=== PATIENT | male | born 1950 | race Caucasian/White ===

== ENCOUNTER 2016-12-17 18:08 | Observation (INO) ==
[2016-12-17 19:15] LABS: Basophils % 0.6 %; Eosinophils # 0.2 K/mcL (0.0-0.6); Eosinophils % 2.5 %; Hematocrit 46.9 % (37.5-50.1); Hemoglobin 15.2 g/dL (12.9-16.9); Immature Granulocytes % 0.3 % (0-4); Lymphocytes # 1.5 K/mcL (0.6-4.6); Lymphocytes % 21.1 %; Mean Corpuscular HGB Conc 32.4 g/dL (31.6-35.5); Mean Corpuscular Hemoglobin 28.8 pg (28.0-33.3); Mean Platelet Volume 10.5 fL (9.4-12.4); Monocytes # 0.5 K/mcL (0.0-1.3); Neutrophils # 4.9 K/mcL (1.6-8.9); Platelet Count 188 K/mcL (140-400); Red Blood Count 5.27 M/mcL (4.19-5.50); Red Cell Distribution Width 12.2 % (11.5-14.5); Segmented Neutrophils % 68.5 %
[2016-12-17] MEDS ORDERED: Ondansetron 4 MG/2 ML VIAL IVP PRN ×2 (19:19→23:32)
[2016-12-17] MEDS ORDERED: diazePAM 10 MG/2 ML SYRINGE IVP STA (19:19)
[2016-12-17 19:25] LABS: Bilirubin,Urine Negative (Negative); Blood,Urine Negative (Negative); Clarity,Urine Clear (Clear); Color,Urine Yellow (Yellow); Glucose,Urine (UA) Normal (Normal); Ketones,Urine Negative (Negative); Leukocyte Esterase,Urine Small (Negative); Nitrite,Urine Negative (Negative); PH,Urine 5.5 pH Units (5.0-8.0); Protein,Urine Negative (Neg-Trace); Specific Gravity,Urine 1.022 (1.010-1.025); Urobilinogen,Urine Normal (Normal)
[2016-12-17 19:28] LABS: Alanine Aminotransferase 17 Units/L (0-55); Albumin 3.8 g/dL (3.5-5.0); Alkaline Phosphatase 90 Units/L (38-126); Aspartate Amino Transferase 17 Units/L (5-34); BUN/Creatinine Ratio 14 (6-26); Bilirubin,Direct 0.3 mg/dL (0.0-0.5); Bilirubin,Indirect 0.4 mg/dL (0.0-1.2); Bilirubin,Total 0.7 mg/dL (0.2-1.2); Blood Urea Nitrogen 11 mg/dL (8-26); Calcium 9.7 mg/dL (8.6-10.8); Carbon Dioxide 28 mEq/L (19-29); Chloride 104 mEq/L (98-109); Globulin 3.8 g/dL (2.4-3.5); Glucose 120 mg/dL (70-99); Osmolality,Calculated 291 (280-300); Potassium 4.2 mEq/L (3.5-4.5); Sodium 140 mEq/L (136-145); Total Protein 7.6 g/dL (6.0-8.3); eGFR For African Americans > 60 (> 60); eGFR For Non-African Americans > 60 (> 60)
[2016-12-17 19:28] LABS: Bacteria,Urine None Seen per hpf (None-Few); Hyaline Casts,Urine None Seen per lpf (None-Few); RBC,Urine 0-3 per hpf (0-3); Squamous Epithelial Cell,Urine Moderate per lpf (None-Few)
[2016-12-17] MEDS ORDERED: 0.9 % Sodium Chloride 1,000 ML IVC ONE (19:29)
--- NOTE | 2016-12-17 19:29 | Emergency Department Note ---
Disposition Clinical Impression: Vertigo Disposition: Admitted As Inpatient Condition: Good Referrals: Unassigned,Provider [Non-Partnered Physician] - Forms: ED Satisfaction Letter Time of Disposition: 20:20 General Adult HPI - General Chief complaint: ED Dizziness Stated complaint: weakness// vertigo// dizzy Time Seen by Provider: 12/17/16 19:00 Source: patient Limitations: no limitations Nursing Notes Reviewed: Yes Vital Signs Reviewed: Yes - History of Present Illness HPI Narrative: 65-year-old male presents emergency room for vertigo symptoms. Onset 3 AM today. No history of such in the past. Denies any numbness in his face or leg. No head trauma. No fevers or chills. No associated vomiting. Slight nausea. No new medications. No recent illness. This came on suddenly. Throughout the middle of the night. This was not a prolonged progression. He denies any chest pain. No other associated symptoms. Symptoms are worse with head movement. Better at rest. Has not taken anything for this. Pain Scale: 0 - Related Data Previous Rx's Medication Instructions Recorded Ciprofloxacin OPTH Soln [Ciloxan 2 drop LEFT EYE Q4HR #1 bottle 12/08/16 OPTH Soln] Allergies Allergy/AdvReac Type Severity Reaction Status Date / Time Penicillins Allergy See Verified 12/17/16 18:26 Comments Review of Systems: Gen.: No fevers or chills or new weakness Eyes: Denies double vision or any vision changes Ears: Denies any otalgia Pharynx: Denies sore throat CV: Denies chest pain. Denies palpitations Respiratory: Denies any cough or sputum production. No shortness of breath. GI: Denies any nausea, vomiting, diarrhea, constipation. Denies abdominal pain Neuro: Positive vertigo Skin: Denies any rashes or abrasions Psych: Denies any depression or suicidal or homicidal ideation Musculoskeletal: Denies any arthralgias or myalgias Past Medical History - Past Medical History Medical history: Reports: no medical history Surgical history: Reports: other (Injury to left eye due to previous surgery.) Psychiatric history: Reports: no psych history - Social History Smoking Status: Never smoker Smokeless Tobacco Status: No Alcohol use: Reports: rarely Drug use: Reports: none Physical Exam HEENT: Head atraumatic normocephalic. Pharynx clear with no exudates. Oral mucosa moist. Uvula midline. TMs clear bilaterally. Trachea midline. No lymphadenopathy. Heart: Regular rate and rhythm. Normal S1 and S2. No gallops, rubs, or murmurs. Lungs: Clear to auscultation bilaterally. No evidence of any rhonchi wheezing or rales. Abdomen: Soft nontender nondistended. Positive bowel sounds. No peritoneal signs. Extremities: No evidence of cyanosis clubbing or edema. Neuro: Cranial nerves II through XII grossly intact. No focal motor or sensory deficits. Speech is clear. Skin: Normal color. dry. Psych: normal mentation. - General Limitations: no limitations General appearance: alert, in no apparent distress - Head Head exam: atraumatic, normocephalic - Eye Eye exam: Present: PERRL, EOMI Course Course Narrative: Patient presented with vertigo-type symptoms. EKG was unremarkable. He was given fluids as well as Zofran, Antivert, Valium. Vital Signs Temperature 97.9 F 12/17/16 18:24 Pulse Rate 75 12/17/16 18:24 Respiratory Rate 18 12/17/16 18:24 Blood Pressure 144/87 12/17/16 18:24 O2 Sat by Pulse Oximetry 96 12/17/16 18:24 Temperature 97.9 F 12/17/16 18:24 Pulse Rate 75 12/17/16 18:24 Respiratory Rate 18 12/17/16 18:24 Blood Pressure 144/87 12/17/16 18:24 O2 Sat by Pulse Oximetry 96 12/17/16 18:24 Oxygen Delivery Oxygen Delivery Room Air Medical Decision Making - [facility] Narrative Medical decision making narrative: CT negative. Chest x-ray negative. Vitals are stable. Patient was given fluids, Zofran, Antivert, Valium. He states he still feeling dizzy when he moves. The family feels unsafe taking him home secondary to potential falls. Patient will be admitted to the hospitalist for further care and observation. - Medical Records Medical records reviewed: Yes I reviewed the patient's medical records. - Lab Data Lab results reviewed: Yes I reviewed the patient's lab results. Result diagrams: 12/17/16 19:07 12/17/16 19:07 Lab Results 12/17/16 12/17/16 12/17/16 Range/Units 19:07 19:07 19:07 WBC 7.1 (4.3-11.1) K/mcL RBC 5.27 (4.19-5.50) M/mcL Hgb 15.2 (12.9-16.9) g/dL Hct 46.9 (37.5-50.1) % MCV 89.0 (83.0-100.0) fL MCH 28.8 (28.0-33.3) pg MCHC 32.4 (31.6-35.5) g/dL RDW 12.2 (11.5-14.5) % Plt Count 188 (140-400) K/mcL MPV 10.5 (9.4-12.4) fL Immature Gran % 0.3 (0-4) % Seg Neutrophils % 68.5 % Lymphocytes % 21.1 % Monocytes % 7.0 % Eosinophils % 2.5 % Basophils % 0.6 % Neutrophils # 4.9 (1.6-8.9) K/mcL Lymphocytes # 1.5 (0.6-4.6) K/mcL Monocytes # 0.5 (0.0-1.3) K/mcL Eosinophils # 0.2 (0.0-0.6) K/mcL Basophils # 0.0 (0.0-0.2) K/mcL Immature Plt Fraction 7.0 H (1.1-6.1) % Sodium 140 (136-145) mEq/L Potassium 4.2 (3.5-4.5) mEq/L Chloride 104 (98-109) mEq/L Carbon Dioxide 28 (19-29) mEq/L BUN 11 (8-26) mg/dL Creatinine 0.81 (0.72-1.25) mg/dL Est GFR ( Amer) > 60 (> 60) Est GFR (Non-Af Amer) > 60 (> 60) BUN/Creatinine Ratio 14 (6-26) Glucose 120 H (70-99) mg/dL Calculated Osmolality 291 (280-300) Calcium 9.7 (8.6-10.8) mg/dL Total Bilirubin 0.7 (0.2-1.2) mg/dL Direct Bilirubin 0.3 (0.0-0.5) mg/dL Indirect Bilirubin 0.4 (0.0-1.2) mg/dL AST 17 (5-34) Units/L ALT 17 (0-55) Units/L Alkaline Phosphatase 90 (38-126) Units/L Troponin I 0.01 (0-0.03) ng/mL Serum Total Protein 7.6 (6.0-8.3) g/dL Albumin 3.8 (3.5-5.0) g/dL Globulin 3.8 H (2.4-3.5) g/dL Albumin/Globulin Ratio 1.0 L (1.1-2.2) Urine Color (Yellow) Urine Clarity (Clear) Urine pH (5.0-8.0) pH Units Ur Specific [place] (1.010-1.025) Urine Protein (Neg-Trace) mg/dL Urine Glucose (UA) (Normal) mg/dL Urine Ketones (Negative) mg/dL Urine Blood (Negative) Urine Nitrite (Negative) Urine Bilirubin (Negative) Urine Urobilinogen (Normal) mg/dL Ur Leukocyte Esterase (Negative) Urine Microscopic RBC (0-3) per hpf Urine Microscopic WBC (0-3) per hpf Ur Squamous Epith Cells (None-Few) per lpf Urine Bacteria (None-Few) per hpf Hyaline Casts (None-Few) per lpf Ur Culture Indicated? (NO) 12/17/16 Range/Units 19:16 WBC (4.3-11.1) K/mcL RBC (4.19-5.50) M/mcL Hgb (12.9-16.9) g/dL Hct (37.5-50.1) % MCV (83.0-100.0) fL MCH (28.0-33.3) pg MCHC (31.6-35.5) g/dL RDW (11.5-14.5) % Plt Count (140-400) K/mcL MPV (9.4-12.4) fL Immature Gran % (0-4) % Seg Neutrophils % % Lymphocytes % % Monocytes % % Eosinophils % % Basophils % % Neutrophils # (1.6-8.9) K/mcL Lymphocytes # (0.6-4.6) K/mcL Monocytes # (0.0-1.3) K/mcL Eosinophils # (0.0-0.6) K/mcL Basophils # (0.0-0.2) K/mcL Immature Plt Fraction (1.1-6.1) % Sodium (136-145) mEq/L Potassium (3.5-4.5) mEq/L Chloride (98-109) mEq/L Carbon Dioxide (19-29) mEq/L BUN (8-26) mg/dL Creatinine (0.72-1.25) mg/dL Est GFR ( Amer) (> 60) Est GFR (Non-Af Amer) (> 60) BUN/Creatinine Ratio (6-26) Glucose (70-99) mg/dL Calculated Osmolality (280-300) Calcium (8.6-10.8) mg/dL Total Bilirubin (0.2-1.2) mg/dL Direct Bilirubin (0.0-0.5) mg/dL Indirect Bilirubin (0.0-1.2) mg/dL AST (5-34) Units/L ALT (0-55) Units/L Alkaline Phosphatase (38-126) Units/L Troponin I (0-0.03) ng/mL Serum Total Protein (6.0-8.3) g/dL Albumin (3.5-5.0) g/dL Globulin (2.4-3.5) g/dL Albumin/Globulin Ratio (1.1-2.2) Urine Color Yellow (Yellow) Urine Clarity Clear (Clear) Urine pH 5.5 (5.0-8.0) pH Units Ur Specific [place] 1.022 (1.010-1.025) Urine Protein Negative (Neg-Trace) mg/dL Urine Glucose (UA) Normal (Normal) mg/dL Urine Ketones Negative (Negative) mg/dL Urine Blood Negative (Negative) Urine Nitrite Negative (Negative) Urine Bilirubin Negative (Negative) Urine Urobilinogen Normal (Normal) mg/dL Ur Leukocyte Esterase Small H (Negative) Urine Microscopic RBC 0-3 (0-3) per hpf Urine Microscopic WBC 5-15 H (0-3) per hpf Ur Squamous Epith Cells Moderate H (None-Few) per lpf Urine Bacteria None Seen (None-Few) per hpf Hyaline Casts None Seen (None-Few) per lpf Ur Culture Indicated? YES A (NO) - Radiology Data Radiology results reviewed: Yes I reviewed the patient's radiology results. - EKG Data EKG #1 EKG results narrative: EKG shows a rate of 77. Normal sinus rhythm. Left axis deviation. HI interval 190 QRS of 95. QTC 398. No signs of acute ischemia.
[2016-12-17] MEDS ORDERED: Naloxone 0.4 MG/ML INJ IVP PRN (22:56)
[2016-12-17] MEDS ORDERED: 0.9 % Sodium Chloride 1,000 ML IVC SCH (23:00)
--- NOTE | 2016-12-17 23:47 | Internal Med History&Physical ---
<Vidya Cummings - Last Filed: 12/17/16 23:57> Date of Encounter: 12/17/16 Time of Encounter: 23:33 Assessment and Plan (1) Vertigo Current visit: Yes Status: Acute Patient has been experiencing sudden onset of vertigo symptoms. He does have nystagmus Bhupendra-Hallpike maneuver positive. Pupils are equal and reactive no facial droop no weakness no numbness tingling. CT of head is negative we will obtain MRI 2 IV fluids overnight 3 meclizine and Zofran 4 fall precautions (2) DVT prophylaxis Current visit: Yes Status: Acute SCDs Internal Medicine - H&P: HPI Chief complaint: Vertigo Admitted From: Emergency Dept Plans for Post Hospital Care: Home History of present illness: Mr. Stone is a 65 year old male no past medical history. According to the patient he awakened approximately 3 AM this morning to go to the bathroom when he settles the bed he felt as if the room was spinning he sat there for a few moments and he got up and he felt off balance with leaning to the right and again felt like everything was spinning. She made to the bathroom and once he got back to bed and lie down symptoms subsided. Throughout the day anytime he would attempt to ambulate or turn his head he would feel as if the room was spinning. He denies any headaches visual changes or photophobia he does complain of some postnasal drip. Approximately 2 weeks ago he was attempting to go stairs when he lost his balance and fell backwards striking his head on the window sill. No LOC he did not seek any medical attention. He denies any fevers chills nausea vomiting chest pain or shortness of breath. Presented to the ER with above complaints lab work was obtained which was all negative CT of head was negative chest x-rays negative EKG was sinus rhythm. He was given IV fluids as well as meclizine he was admitted for further workup and evaluation. Presently the patient appears very stoic, he does not complain of any vertigo symptoms as he is lying down however attempted to perform Bhupednra-Hallpike maneuver which appears to be positive with vertical nystagmus right and left position. He had a positive Romberg. I do not ambulate patient due to unstable on feet. Pupils are PERRL cranial nerves II through XII are intact equal strength 4. Lung sounds are clear heart sounds are regular S1-S2 no rubs clicks, murmurs noted abdomen soft and nontender no pedal edema. I reviewed this case with Dr. Goss who agrees with plan Past Med Surg Social Fam HX - Past Medical History Medical history: no medical history Psychiatric history: no psych history - Past Surgical History Surgical History: no surgical history - Social History Smoking Status: Never smoker Smokeless Tobacco Status: No Alcohol use: rarely Drug use: none - Family History Mother Name: gabby Living Status: Still Living Hx Family Endocrine Disorder: Yes (dm) Father Name: hazel Living Status: Age at : 86 Cause of : heart failure Hx Family Cardiac Disorders: Yes Hx Family Endocrine Disorder: Yes (dm) Internal Medicine - H&P: Meds Ciprofloxacin OPTH Soln [Ciloxan OPTH Soln] 2 drop LEFT EYE Q4HR #1 bottle 12/08 [Rx] 3 Allergy/AdvReac Type Severity Reaction Status Date / Time Penicillins Allergy See Verified 12/17/16 18:26 Comments All Systems PM: A 10-system review of systems was performed and is negative for pertinent findings except as documented above in the HPI. - Constitutional Constitutional: no chills, no fever(s), no night sweats - EENT Eyes: no change in vision, no discharge, no pain, no photophobia Ears: no ear discharge, no ear pain, no tinnitus Nose, mouth and throat: no dysphagia, no nasal discharge, no neck pain, no sore throat - Cardiovascular Cardiovascular ROS IM: no chest pain, no diaphoresis, no dyspnea, no lightheadedness, no palpitations, no syncope - Respiratory Respiratory: no cough, no dyspnea, no wheezing, no excessive phlegm production - Gastrointestinal Gastrointestinal: no abdominal pain, no diarrhea, no hematemesis, no hematochezia, no melena, no nausea, no vomiting - Musculoskeletal Musculoskeletal ROS IM: no numbness, no tingling - Neurological Neurological ROS: abnormal gait, disequilibrium, dizziness, vertigo, no confusion, no convulsions, no focal weakness, no numbness, no tingling, no tremor(s) - Hematologic/Lymphatic Hematologic/Lymphatic: no easy bruising - Constitutional Vitals: Temp Pulse Resp BP Pulse Ox 98.4 F 89 17 131/73 95 12/17/16 22:07 12/17/16 22:07 12/17/16 22:07 12/17/16 22:07 12/17/16 22:07 General appearance: Present: A&O X 3, answers questions appropriately - Head Head exam: Present: atraumatic, normocephalic - Eye Eye exam: Present: EOMI, nystagmus, PERRL, conjuntiva pink, sclera anicteric Pupils: Present: PERRL - Neck Neck exam general surgery: Present: supple, trachea midline. Absent: lymphadenopathy - Respiratory Respiratory exam: Present: CTAB. Absent: accessory muscle use, rales, rhonchi, wheezes - Cardiovascular Cardiovascular exam: Present: RRR, +S1, +S2. Absent: diastolic murmur, gallop, rubs, systolic murmur - GI/Abdominal GI/Abdominal exam: Present: normal bowel sounds, soft, no peritoneal signs. Absent: distended, tenderness - Extremities Exam Extremities exam: Present: warm, radial pulses palpable and symmetrical. Absent : calf tenderness, cyanotic, pedal edema - Neurological Exam Neurological exam: Present: CN II-XII intact, oriented X3, no focal deficits, strengths equal and symetr throughout. Absent: pronater drift, facial droop, speech deficit - Skin Skin exam: Present: dry, intact Internal Med - H&P Results - Labs CBC & Chem 7: 12/17/16 19:07 12/17/16 19:07 - EKG Data EKG shows normal: sinus rhythm - EKG Data Prior EKG available for review: no - Diagnostic Studies Other Images Additional comments: Chest X-Ray 12/17/16 19:08 IMPRESSION: Shallow inspiration with mild left basilar atelectasis. D/ / Ryley Ch MD / Ryley Ch MD Interpreting Provider: Ryley Ch MD Head CT 12/17/16 19:18 IMPRESSION: No acute intracranial abnormality. D/ / Santana Decker MD / Santana Decker MD Interpreting Provider: Santana Decker MD <Riley Goss - Last Filed: 12/18/16 03:41> Date of Encounter: 12/18/16 Time of Encounter: 03:00 - Constitutional Vitals: Temp Pulse Resp BP Pulse Ox 98.1 F 85 18 130/75 97 12/18/16 00:26 12/18/16 00:26 12/18/16 00:26 12/18/16 00:26 12/18/16 00:26 General appearance: Present: A&O X 3, no acute distress, answers questions appropriately - Head Head exam: Present: normal inspection - Eye Eye exam: Present: EOMI, PERRL. Absent: scleral icterus - ENT ENT exam: Present: mucous membranes moist, normal exam - Neck Neck exam general surgery: Present: supple - Respiratory Respiratory exam: Present: CTAB. Absent: rales, rhonchi, wheezes - Cardiovascular Cardiovascular exam: Present: RRR, +S1, +S2 - GI/Abdominal GI/Abdominal exam: Present: soft. Absent: tenderness - Neurological Exam Neurological exam: Present: alert, CN II-XII intact, oriented X3, no focal deficits, strengths equal and symetr throughout Additional comments: + nystagmus with head turning Internal Med - H&P Results - Labs CBC & Chem 7: 12/17/16 19:07 12/17/16 19:07 - EKG Data -: EKG Interpreted by Myself EKG shows normal: sinus rhythm - Diagnostic Studies Chest x-ray Status: image reviewed by me (negative) - Attending Attestation I discussed the patient [place], PMH, ROS, lab data, and exam findings with Vidya Cummings CNP. I then saw and examined patient independently as well. Pt sleeping in bed comfortably, easily arousable, and currently with no complaints. He does have some reproducible symptoms of nystagmus and vertigo with head turning, but this is improved compared to yesterday. He has no focal deficits. I agree with MRI to rule out cerebellar pathology. I am hopeful that with IVF hydration and current meds he can stabilize and discharge home soon, assuming the brain MRI is negative. Other than my comments above and noted exam findings, I agree with Vidya's assessment and plan.
--- NOTE | 2016-12-18 10:53 | Internal Med Progress Note ---
<Taye Miner - Last Filed: 12/18/16 12:23> Date of Encounter: 12/18/16 Time of Encounter: 10:40 - Assessment and plan (1) Vertigo Current Visit: Yes Status: Acute Assessment and plan: Patient presented with positive Bhupendra-hallpike maneuver on right side. CN II-XII. CT and MRI of head reveals no acute intracranial abnormalities. - Continue IV fluids. - Meclizine and zofran. - Falco maneuver. - Fall precautions. (2) DVT prophylaxis Current Visit: Yes Status: Acute Assessment and plan: SCDs. - Subjective Interval history: Patient is a 65 yo M with no significant PMH that presented to the ED for dizziness. Denies LOC or fall. Head CT and brain MRI revealed no acute intracranial abnormalities. Bhupendra-hallpike maneuver was positive on the right. When seen today, patient says that he becomes dizzy whenever he sits up. He denies any headaches, blurry vision, light-headedness, syncope, shortness of breath, diarrhea, or constipation. He admits to nausea, but denies any vomiting. - Constitutional Vitals: Temp Pulse Resp BP Pulse Ox 98.1 F 78 15 136/79 93 12/18/16 08:53 12/18/16 08:53 12/18/16 08:53 12/18/16 08:53 12/18/16 08:53 General appearance: Present: A&O X 3, no acute distress, answers questions appropriately - Respiratory Respiratory exam: Present: CTAB. Absent: respiratory distress, rhonchi, wheezes , tachypnea - Cardiovascular Cardiovascular exam: Present: RRR, +S1, +S2. Absent: diastolic murmur, systolic murmur - GI/Abdominal GI/Abdominal exam: Present: normal bowel sounds, soft. Absent: guarding, rebound - Neurological Exam Neurological exam: Present: alert, CN II-XII intact, oriented X3, reflexes normal, no focal deficits. Absent: facial droop Internal Medicine: Result - Labs CBC & Chem 7: 12/17/16 19:07 12/17/16 19:07 - Impressions Impressions Brain MRI 12/18/16 01:37 IMPRESSION: 1. No acute intracranial abnormality. No acute infarct. 2. Minimal chronic microvascular ischemic changes. 3. Scattered sinusitis. D/ / Unruly Chaudhary MD / Unruly Chaudhary MD Interpreting Provider: Unruly Cahudhary MD Consult Discharge Plan - Plan Referrals: Kevin Cardozo DO [Primary Care Provider] - <Juvenal Moreno - Last Filed: 12/18/16 19:31> Date of Encounter: 12/18/16 - Assessment and plan (1) Benign positional vertigo Current Visit: Yes Status: Suspected Qualifiers: Laterality: right Qualified Code(s): H81.11 - Benign paroxysmal vertigo, right ear (2) Tinnitus of right ear Current Visit: Yes Status: Acute - Constitutional Vitals: Temp Pulse Resp BP Pulse Ox 98.7 F 78 17 152/80 93 12/18/16 17:34 12/18/16 17:34 12/18/16 17:34 12/18/16 17:34 12/18/16 17:34 Internal Medicine: Result - Labs CBC & Chem 7: 12/17/16 19:07 12/17/16 19:07 - Impressions Impressions Brain MRI 12/18/16 01:37 IMPRESSION: 1. No acute intracranial abnormality. No acute infarct. 2. Minimal chronic microvascular ischemic changes. 3. Scattered sinusitis. D/ / Unruly Chaudhary MD / Unruly Chaudhary MD Interpreting Provider: Unruly Chaudhary MD - Attending Attestation I examined this patient and my medical decision-making was reviewed with the Resident Physician on 12/18/16. I agree with the documented findings, disposition and treatment plan as described except to the extent set forth below. Mr. Stone is currently in observation for vertigo presumptively BPPV. Mr Stone is only a little better. No fever or chills. No SOB. No other neuro issues. Has "hum" in ears. Still with nausea and dizziness with any position change. Did have conjunctivitis on L last week. No URI symptoms. Chronic sinus issues. Exam Alert. Moderate distress Heart reg Lungs clear Abd soft I/P 1. Vertigo - most likely BPPV but could be labrinthytis. Neuro eval. Further diagnoses and plan as above.
[2016-12-18] MEDS ORDERED: methylPREDNISolone 125 MG/2 ML VIAL IVP ONE (16:16)
[2016-12-18] MEDS: *HR* LORazepam 1 MG TABLET PO SCH (20:59)
--- NOTE | 2016-12-19 05:52 | Electrocardiograph Report ---
[place] [id number] Test Date: 2016-12-17 Pat Name: Alton Stone Department: 102 Room: [facility] Gender: M [employer] Clerk: [facility] : 1950 Requested By: Nando Restrepo Order Number: [id number] Reading MD: Chance Rider MD Measurements Intervals [place] Rate: 77 P: 48 LA: 190 QRS: -45 QRSD: 95 T: -3 QT: 367 QTc: 398 Interpretive Statements SINUS RHYTHM LEFT ANTERIOR FASCICULAR BLOCK BASELINE ARTIFACT Electronically Signed On 12-19-2016 5:51:08 EDT by Chance Rider MD
[2016-12-19 08:09] LABS: BUN/Creatinine Ratio 17 (6-26); Blood Urea Nitrogen 14 mg/dL (8-26); Calcium 9.5 mg/dL (8.6-10.8); Carbon Dioxide 25 mEq/L (19-29); Chloride 105 mEq/L (98-109); Glucose 122 mg/dL (70-99); Magnesium 1.8 mg/dL (1.6-2.6); Osmolality,Calculated 294 (280-300); Potassium 4.4 mEq/L (3.5-4.5); Sodium 141 mEq/L (136-145); eGFR For African Americans > 60 (> 60); eGFR For Non-African Americans > 60 (> 60)
[2016-12-19 08:13] LABS: Basophils % 0.3 %; Eosinophils % 0.1 %; Hematocrit 44.5 % (37.5-50.1); Hemoglobin 14.3 g/dL (12.9-16.9); Immature Granulocytes % 0.5 % (0-4); Lymphocytes # 1.4 K/mcL (0.6-4.6); Lymphocytes % 14.5 %; Mean Corpuscular HGB Conc 32.1 g/dL (31.6-35.5); Mean Corpuscular Hemoglobin 28.7 pg (28.0-33.3); Mean Corpuscular Volume 89.4 fL (83.0-100.0); Mean Platelet Volume 11.1 fL (9.4-12.4); Monocytes # 0.5 K/mcL (0.0-1.3); Monocytes % 5.3 %; Neutrophils # 7.8 K/mcL (1.6-8.9); Platelet Count 192 K/mcL (140-400); Red Blood Count 4.98 M/mcL (4.19-5.50); Red Cell Distribution Width 12.1 % (11.5-14.5); Segmented Neutrophils % 79.3 %
--- NOTE | 2016-12-19 11:48 | Internal Med Progress Note ---
<Taye Miner - Last Filed: 12/19/16 16:02> Date of Encounter: 12/19/16 Time of Encounter: 10:00 - Assessment and plan (1) Vertigo Current Visit: Yes Status: Acute Assessment and plan: Patient presented with positive Bhupendra-hallpike maneuver on right side. CN II-XII. CT and MRI of head reveals no acute intracranial abnormalities. - Continue IV fluids. - Schedule meclizine daily and not PRN. - Start patient on prednisone PO 40 mg qd for labyrinthitis. - F/U with neurology. - Shanta maneuver. - Fall precautions. (2) DVT prophylaxis Current Visit: Yes Status: Acute Assessment and plan: SCDs. - Subjective Interval history: Patient is a 65 yo M with no significant PMH that presented to the ED for dizziness. Denies LOC or fall. Head CT and brain MRI revealed no acute intracranial abnormalities. Bhupendra-hallpike maneuver was positive on the right. Patient was treated with meclizine yesterday along with the shanta maneuver. When seen today, patient says that his dizziness improved yesterday with the meclizine and shanta treatment, however today his dizziness has returned to its original intensity. He also admits to nausea but denies any vomiting. He denies any headaches, blurry vision, light-headedness, syncope, shortness of breath, diarrhea, or constipation. - Constitutional Vitals: Temp Pulse Resp BP Pulse Ox 97.5 F L 80 15 153/79 94 12/19/16 07:24 12/19/16 07:24 12/19/16 07:24 12/19/16 07:24 12/19/16 07:24 General appearance: Present: A&O X 3, no acute distress, answers questions appropriately - Respiratory Respiratory exam: Present: CTAB. Absent: respiratory distress, rhonchi, wheezes , tachypnea - Cardiovascular Cardiovascular exam: Present: RRR, +S1, +S2. Absent: diastolic murmur, systolic murmur - GI/Abdominal GI/Abdominal exam: Present: normal bowel sounds, soft. Absent: distended, guarding, rebound, tenderness - Neurological Exam Neurological exam: Present: CN II-XII intact, oriented X3, reflexes normal, no focal deficits, strengths equal and symetr throughout Internal Medicine: Result - Labs CBC & Chem 7: 09/19/17 07:17 12/19/16 07:17 Labs: Short CBC 12/19/16 Range/Units 07:17 WBC 9.8 (4.3-11.1) K/mcL Hgb 14.3 (12.9-16.9) g/dL Hct 44.5 (37.5-50.1) % Plt Count 192 (140-400) K/mcL Neutrophils # 7.8 (1.6-8.9) K/mcL [facility] 12/19/16 07:17 Sodium 141 Potassium 4.4 Chloride 105 Carbon Dioxide 25 BUN 14 Creatinine 0.83 Glucose 122 H Calcium 9.5 Laboratory Tests 12/19/16 07:17 Magnesium 1.8 Consult Discharge Plan - Plan Referrals: Kevin Cardozo DO [Primary Care Provider] - <Sp Villa - Last Filed: 12/19/16 19:47> Date of Encounter: 12/19/16 - Constitutional Vitals: Temp Pulse Resp BP Pulse Ox 98.3 F 82 18 145/79 94 12/19/16 19:04 12/19/16 19:04 12/19/16 19:04 12/19/16 19:04 12/19/16 19:04 Internal Medicine: Result - Labs CBC & Chem 7: 12/19/16 07:17 12/19/16 07:17 Labs: Short CBC 12/19/16 Range/Units 07:17 WBC 9.8 (4.3-11.1) K/mcL Hgb 14.3 (12.9-16.9) g/dL Hct 44.5 (37.5-50.1) % Plt Count 192 (140-400) K/mcL Neutrophils # 7.8 (1.6-8.9) K/mcL [facility] 12/19/16 07:17 Sodium 141 Potassium 4.4 Chloride 105 Carbon Dioxide 25 BUN 14 Creatinine 0.83 Glucose 122 H Calcium 9.5 - Attending Attestation I examined this patient and my medical decision-making was reviewed with the Resident Physician. I agree with the documented findings, disposition and treatment plan as described except to the extent set forth below. Patient reports improvement and his vertigo over the last 24 hours and with use of meclizine. He describes his symptoms as spinning sensation, associated with nausea no vomiting. Aggressive IV fluid resuscitation. Continue meclizine scheduled. Continue steroids. It is my first day taking care of this patient. All problems are new to me today.
--- NOTE | 2016-12-19 13:47 | Neurology - Consult Note ---
Date of Encounter: 12/19/16 Time of Encounter: 08:45 Assessment and Plan (1) Benign positional vertigo Current Visit: Yes Status: Suspected This patient was seems to have some dizziness along with vertiginous feeling with positive milena Hallpike without any focal finding on on his neurological examination to be concerned of posterior circulation especially is no focal motor weakness. He already had an MRI of the brain that has been reported as negative. At this time I would suggest that he may give him a dose of steroiod, that might help his inner ear dysfunction, at the same time may benefit from low- dose of Ativan at bedtime that usually help with these symptoms on the other hand he may continue to take meclizine on an as-needed basis. If that symptoms did not improve perhaps he may need vestibular rehabilitation. Again no focal neurological deficit noted on his neurological examination as well as on his MRI of the brain If patient remained stable could be discharged from neurology standpoint Qualifiers: Laterality: right Qualified Code(s): H81.11 - Benign paroxysmal vertigo, right ear (2) Vertigo Current Visit: Yes Status: Acute History of Present Illness HPI: Mr. Stone is a 65 year old male with no past medical history. According to the patient he awakened approximately 3 AM this morning to go to the bathroom when he settles the bed he felt as if the room was spinning he sat there for a few moments and he got up and he felt off balance with leaning to the right and again felt like everything was spinning. Throughout the day anytime he would attempt to ambulate or turn his head he would feel as if the room was spinning. He denies any headaches visual changes, Approximately 2 weeks ago he was attempting to go stairs when he lost his balance and fell backwards striking his head. No LOC he did not seek any medical attention. He denies any fevers chills nausea vomiting chest pain or shortness of breath. Presented to the ER with above complaints lab work was obtained which was all negative CT of head was negative, Johnston-Hallpike maneuver was performed and noted to be positive, He had a positive Romberg. Past Med Surg Social Fam HX - Past Medical History Medical history: no medical history Psychiatric history: no psych history - Past Surgical History Surgical History: no surgical history - Social History Smoking Status: Never smoker Smokeless Tobacco Status: No Alcohol use: rarely Drug use: none - Family History Mother Name: gabby Living Status: Still Living Hx Family Endocrine Disorder: Yes (dm) Father Name: hazel Living Status: Age at : 86 Cause of : heart failure Hx Family Cardiac Disorders: Yes Hx Family Endocrine Disorder: Yes (dm) Medications and Allergies No Known Home Drugs 12/18/16 [History] 3 Allergy/AdvReac Type Severity Reaction Status Date / Time Penicillins Allergy See Verified 12/17/16 18:26 Comments All Systems: A 10-system review of systems was performed and is negative for pertinent findings except as documented above in the HPI. Physical Examination - Vital Signs Vital Signs: Initial Vital Signs Temp Pulse Resp BP Pulse Ox 97.9 F 75 18 144/87 96 12/17/16 18:24 12/17/16 18:24 12/17/16 18:24 12/17/16 18:24 12/17/16 18:24 - Constitutional General appearance: comfortable - Neurologic Detailed motor examination: full strength in all major muscle groups Motor examination - right side: 5/5: deltoids, biceps, triceps, wrist flexion, wrist extension, jacker, hip flexors, tibialis Anterior, quadriceps, toe extension (EHL), plantarflexion Motor examination - left side: 5/5: deltoids, biceps, triceps, wrist flexion, wrist extension, hip flexors, jacker, quadriceps, tibialis Anterior, toe extension (EHL), plantarflexion Mental Status Examination: awake, alert, oriented to person, oriented to place, oriented to time, follows commands appropriately, answers questions appropriately, no agnosia, no aphasia, no aproxia Cranial nerve examination: PERRL, EOMI, visual simeon intact, corneal reflexes brisk symmetrically, sensory to face intact, mastication intact, no facial asymmetry is present, no dysarthria, hearing is intact symmetrically, soft palate elevates bilaterally upon phonation, gag reflex intact, flexes SCM and trapezius muscles symmetrically with full power, tongue protrudes midline, no atrophy or facial fasiculations present Cerebellar examination: no dysmetria, performs finger to nose and heel to bliss symmetrically without ataxia, no gait ataxia, no truncal ataxia, no difficulty with rapid alternating movements Results - Laboratory Findings CBC and BMP: 12/19/16 07:17 12/19/16 07:17 Abnormal lab findings: Abnormal lab results Immature Plt Fraction 7.0 % (1.1-6.1) H 12/17/16 19:07 Glucose 122 mg/dL (70-99) H 12/19/16 07:17 Globulin 3.8 g/dL (2.4-3.5) H 12/17/16 19:07 Albumin/Globulin Ratio 1.0 (1.1-2.2) L 12/17/16 19:07 Ur Leukocyte Esterase Small (Negative) H 12/17/16 19:16 Urine Microscopic WBC 5-15 per hpf (0-3) H 12/17/16 19:16 Ur Squamous Epith Cells Moderate per lpf (None-Few) H 12/17/16 19:16 Ur Culture Indicated? YES (NO) A 12/17/16 19:16 Consult Discharge Plan - Plan Referrals: Kevin Cardozo DO [Primary Care Provider] -
[2016-12-19] MEDS: 0.9 % Sodium Chloride 1,000 ML IVC SCH ×3 (16:49→19:07)
[2016-12-19] MEDS: predniSONE 20 MG TABLET PO SCH (16:50)
[2016-12-19] MEDS: *HR* LORazepam 1 MG TABLET PO SCH (20:52)
[2016-12-20] MEDS: 0.9 % Sodium Chloride 1,000 ML IVC SCH (03:15)
[2016-12-20 06:34] LABS: Basophils % 0.4 %; Eosinophils % 0.1 %; Hematocrit 40.7 % (37.5-50.1); Hemoglobin 13.3 g/dL (12.9-16.9); Immature Granulocytes % 0.7 % (0-4); Lymphocytes # 1.5 K/mcL (0.6-4.6); Lymphocytes % 19.5 %; Mean Corpuscular HGB Conc 32.7 g/dL (31.6-35.5); Mean Corpuscular Hemoglobin 29.4 pg (28.0-33.3); Mean Corpuscular Volume 89.8 fL (83.0-100.0); Mean Platelet Volume 11.2 fL (9.4-12.4); Monocytes # 0.4 K/mcL (0.0-1.3); Monocytes % 5.8 %; Neutrophils # 5.6 K/mcL (1.6-8.9); Platelet Count 182 K/mcL (140-400); Red Blood Count 4.53 M/mcL (4.19-5.50); Red Cell Distribution Width 12.1 % (11.5-14.5); Segmented Neutrophils % 73.5 %
[2016-12-20 06:42] LABS: BUN/Creatinine Ratio 20 (6-26); Blood Urea Nitrogen 15 mg/dL (8-26); Calcium 8.9 mg/dL (8.6-10.8); Carbon Dioxide 26 mEq/L (19-29); Chloride 107 mEq/L (98-109); Glucose 128 mg/dL (70-99); Magnesium 1.9 mg/dL (1.6-2.6); Osmolality,Calculated 292 (280-300); Potassium 4.4 mEq/L (3.5-4.5); Sodium 140 mEq/L (136-145); eGFR For African Americans > 60 (> 60); eGFR For Non-African Americans > 60 (> 60)
[2016-12-20 07:03] VITALS: BP 119/68
--- NOTE | 2016-12-20 08:12 | Discharge Summary ---
<Taye Miner - Last Filed: 12/20/16 08:34> Date of Encounter: 12/20/16 Time of Encounter: 07:40 - Discharge Diagnosis (1) Vertigo Priority: Primary Status: Acute (2) DVT prophylaxis Priority: Primary Status: Acute - Discharge Medications Prescriptions: Meclizine [Antivert] 25 mg PO TID PRN #180 tablet PRN Reason: Vertigo predniSONE [PredniSONE] 10 mg PO DAILY #20 tablet Home Medications: Meclizine [Antivert] 25 mg PO TID PRN #180 tablet 12/20/16 [Rx] predniSONE [PredniSONE] 10 mg PO DAILY #20 tablet 12/20/16 [Rx] Allergies/Adverse Reactions: 3 Allergy/AdvReac Type Severity Reaction Status Date / Time Penicillins Allergy See Verified 12/17/16 18:26 Comments Procedures/tests Complete & Pending: Procedures Performed prior 72 hours Category Date Time Status MR head/brain wo con [MR] Routine MRI 12/18/16 01:37 Completed Date of admission: 12/17/16 21:11 Primary care physician: Carolyn Falcon Consults: 12/18/16 19:03 Consult to Neurology [CONS] Routine Consulting Provider: [facility] Reason for Consult: Vertigo Time Notified: 16:30 Call Completed: Yes Discharging clinician: Sp Villa (Kristofer) Anticipated date of discharge: 12/20/16 - Patient Status Disposition: Home, Self-Care Condition: Good Functional capacity at discharge: wheelchair bound Overall status at discharge: patient is progressing back to baseline - Discharge Instructions Follow Up With: Kevin Cardozo DO [Primary Care Provider] - 12/25/16 11:30 am Additional Instructions: Return to nearest emergency room for any new or worsening symptoms. Please make sure to fill new prescriptions and take as prescribed. - Diet and Activity Activity: resume usual activities as tolerated Diet: low fat, low cholesterol Hospital course: Mr. Stone is a 65 year old male with no significant PMH that presented to the ER for vertigo. According to the patient he awakened approximately 3 AM in the morning to go to the bathroom when he got up from the bed he felt as if the room was spinning. He sat there for a few moments and he got up and he felt off balance with leaning to the right and again felt like everything was spinning. He made to the bathroom and once he got back to bed and lie down symptoms subsided. Approximately 2 weeks ago he was attempting to go stairs when he lost his balance and fell backwards striking his head on the window sill. No LOC. Patient has also been complaining or ringing in his ears. Presented to the ER with above complaints lab work was obtained which was all negative, CT of head was negative, chest x-rays negative, and EKG was sinus rhythm. Bhupendra hallpike maneuver was positive on the right side. He was given IV fluids as well as meclizine he was admitted for further workup and evaluation. Brain MRI revealed no acute abnormalities. Patient was then given one time dose of methylprednisone and subsequently continued on PO prednisone for a total of 2 days to treat for labyrinthitis. Flaco maneuver was also used to treat. Neurology department was on board and has reported patient has not shown any focal neurological deficits. When seen today, patient says that he is not nauseous anymore. He still complains of dizziness when he sits up, but he says it has improved considerably since admission, rating it a 1/10 in severity today. He denies any dizziness when he is lying down. He also denies any vomiting, headaches, light-headedness, shortness of breath, syncope, or numbness /tingling. Patient is afebrile, normotensive, and hemodynamically stable. Plan is to discharge patient today on a month supply of meclizine to take as need and for him to finish his 10 day course of prednisone (currently on day 3). - Time Spent with Patient Total time spent providing and/or coordinating discharge services: - Constitutional Vitals: Temp Pulse Resp BP Pulse Ox 98.4 F 78 16 119/68 95 12/20/16 06:49 12/20/16 06:49 12/20/16 06:49 12/20/16 06:49 12/20/16 06:49 General appearance: Present: A&O X 3, no acute distress, answers questions appropriately - Respiratory Respiratory exam: Present: CTAB. Absent: respiratory distress, rhonchi, wheezes , tachypnea - Cardiovascular Cardiovascular exam: Present: RRR, +S1, +S2. Absent: diastolic murmur, systolic murmur - GI/Abdominal GI/Abdominal exam: Present: normal bowel sounds, soft. Absent: guarding, rebound, tenderness - Neurological Exam Neurological exam: Present: CN II-XII intact, reflexes normal, no focal deficits , strengths equal and symetr throughout <Sp Villa - Last Filed: 12/20/16 16:46> Date of Encounter: 12/20/16 Procedures/tests Complete & Pending: Procedures Performed prior 72 hours Category Date Time Status MR head/brain wo con [MR] Routine MRI 12/18/16 01:37 Completed Date of admission: 12/17/16 21:11 Primary care physician: Carolyn Falcon Consults: 12/18/16 19:03 Consult to Neurology [CONS] Routine Consulting Provider: [facility] Reason for Consult: Vertigo Time Notified: 16:30 Call Completed: Yes Hospital course: Mr. Stone is a 65 year old male - Time Spent with Patient Total time spent providing and/or coordinating discharge services: - Constitutional Vitals: Temp Pulse Resp BP Pulse Ox 98.4 F 78 16 119/68 95 12/20/16 06:49 12/20/16 06:49 12/20/16 06:49 12/20/16 06:49 12/20/16 06:49 - Attending Attestation I examined this patient and my medical decision-making was reviewed with the Resident Physician. I agree with the documented findings, disposition and treatment plan as described except to the extent set forth below. Patient reports improvement of vertigo. On exam he is in no acute distress. Heart is regular S1-S2. Lungs are clear. Plan discharge home, recommend keeping good oral hydration. We will prescribe meclizine.
[2016-12-20] MEDS: predniSONE 20 MG TABLET PO SCH (09:59)
== END 2016-12-20 11:43 | disposition home or self-care (01) ==
LOC: EMEROO 18:08 → 3NENU 18:08 → SUATTDRO 21:11 → 3NENU 21:27
PROVIDERS: ADMIT Pediatrics; ATTEND Internal Medicine